=== PATIENT | female | born 1975 | race Caucasian/White ===

== ENCOUNTER 2017-05-19 19:05 | Emergency (ER) | payer BC ==
[2017-05-19 19:35] VITALS: BP 120/74
[2017-05-19] MEDS ORDERED: predniSONE TAB* 20 MG PO ONE (19:40)
[2017-05-19] MEDS ORDERED: Albuterol/Ipratropium NEB.SOL* Albuterol 2.5 MG/Ipratropium 0.5 MG 3 ML INH ONE (19:40)
[2017-05-19] MEDS ORDERED: Azithromycin TAB* 250 MG PO ONE (19:40)
--- NOTE | 2017-05-19 19:40 | UC ---
Respiratory Complaint HPI - HPI Summary HPI Summary: was a another urgent care 5 times and given albuterol and tessalon stated she just has "one hundred day cough". Comes in tonight chest feeling very tight and SOB - History of Current Complaint Chief Complaint: UCRespiratory Stated Complaint: SHORTNESS OF BREATH Time Seen by Provider: 05/19/17 19:29 Hx Obtained From: Patient Hx Last Menstrual Period: 05/01/17 ?: No Onset/Duration: Gradual Onset, Lasting Weeks Timing: Constant Severity Initially: Mild Severity Currently: Moderate Character: Cough: Nonproductive Aggravating Factors: Nothing Alleviating Factors: Bronchodilator Associated Signs And Symptoms: Positive: Dyspnea, Pleuritic Chest Pain, Wheezing - Allergies/Home Medications Allergies/Adverse Reactions: Allergies Allergy/AdvReac Type Severity Reaction Status Date / Time Penicillins Allergy Severe Anaphylatic Verified 05/19/17 19:35 Shock Home Medications: Home Medications Albuterol HFA INHALER* [Ventolin HFA Inhaler*] 2 puff INH Q4H PRN 05/19/17 [ History Confirmed 05/19/17] PMH/Surg Hx/FS Hx/Imm Hx Previously Healthy: Yes - Surgical History Surgical History: Yes Surgery Procedure, Year, and Place: , 2004 2006, [facility] [place]. Right Ovarian Cystectomy, 2012, [facility]. Tubal ligation - Family History Known Family History: Positive: None - Social History Occupation: Employed Full-time Lives: With Family Alcohol Use: Occasionally Substance Use Type: None Smoking Status (MU): Former Smoker Type: Cigarettes Length of Time of Smoking/Using Tobacco: quit "a long time ago", still has occasional social cigarette Review of Systems Constitutional: Negative Skin: Negative Eyes: Negative ENT: Negative Respiratory: Shortness Of Breath, Cough Cardiovascular: Negative Gastrointestinal: Negative Genitourinary: Negative Motor: Negative Neurovascular: Negative Musculoskeletal: Negative Neurological: Negative Psychological: Negative Is Patient Immunocompromised?: No All Other Systems Reviewed And Are Negative: Yes Physical Exam Triage Information Reviewed: Yes Appearance: Well-Appearing Vital Signs: Initial Vital Signs Temp 98.0 F 05/19/17 19:27 Pulse 93 05/19/17 19:27 Resp 20 05/19/17 19:27 BP 120/74 05/19/17 19:27 Pulse Ox 100 05/19/17 19:27 Vital Signs Reviewed: Yes Eye Exam: Normal Eyes: Positive: Conjunctiva Clear ENT Exam: Normal ENT: Positive: Normal ENT inspection, Hearing grossly normal, TMs normal. Negative: Nasal congestion, Nasal drainage, Trismus, Muffled/hoarse voice Dental Exam: Normal Neck exam: Normal Neck: Positive: Supple, Nontender Respiratory Exam: Normal, Other Respiratory: Positive: Respiratory distress - mild, Wheezing Cardiovascular Exam: Normal Cardiovascular: Positive: RRR, No Murmur, Pulses Normal, Brisk Capillary Refill Musculoskeletal Exam: Normal Musculoskeletal: Positive: Strength Intact, ROM Intact, No Edema Neurological Exam: Normal Neurological: Positive: Alert, Muscle Tone Normal Psychological Exam: Normal Skin Exam: Normal Diagnostic Evaluation - Laboratory O2 Sat by Pulse Oximetry: 100 Re-Evaluation - Re-Evaluation First Eval Change: Improved - increase airmovement no wheeze, cough decreased feels better Respiratory Course/Dx - Course Course Of Treatment: prednisone, robitussin and codiene, zithromax, albuterol with aerochamber, follow with pcp prn - Differential Dx/Diagnosis Provider Diagnoses: Bronchospasm, bronchitis Discharge - Discharge Plan Condition: Stable Disposition: HOME Prescriptions: Albuterol HFA INHALER* [Ventolin HFA Inhaler*] 2 puff INH Q4H PRN #1 mdi PRN Reason: cough Azithromycin TAB* [Zithromax TAB (Z-FOREIGN) 250 mg #6 tabs] 250 mg PO DAILY #4 tab guaiFENesin/CODIEN 100MG-10MG* [Robitussin AC 100Mg-10Mg*] 10 ml PO Q4H PRN # 120 ml MDD 40ml PRN Reason: cough predniSONE TAB* [Deltasone TAB*] 50 mg PO DAILY #4 tab Patient Education Materials: Acute Bronchitis (ED), Bronchospasm (ED), How to Use a Metered-Dose Inhaler and a Spacer (ED) Referrals: [facility] [Provider Group] - 1 Week
== END 2017-05-19 20:34 | disposition home or self-care (01) ==
LOC: UCCORT 19:05
DX: J40 Bronchitis, not specified as acute or chronic (principal); J98.01 Acute bronchospasm; Z87.891 Personal history of nicotine dependence; Z88.0 Allergy status to penicillin
CPT/HCPCS: 87798; 99213; A9270-GY; G0463; J7512

== ENCOUNTER 2018-11-28 11:55 | Emergency (ER) | payer SELFPAY ==
[2018-11-28 13:30] VITALS: BP 118/77
--- NOTE | 2018-11-28 14:29 | UC ---
Complaint Female HPI - HPI Summary HPI Summary: 42-year-old female presents with onset of increased mucus-like vaginal discharge approximately one week ago. 4 days later noted some burning with urination. 3 days ago she started noticing some tender, erythematous lesions in her perineum with in her pubic hair. States she was concerned she may have had a yeast infection and started 3 day course of Monistat 3 days ago with no improvement in symptoms. States she is in a monogamous sexual relationship with her spouse of 20 years. Denies fever, chills, abdominal pain, back or flank pain, nausea, vomiting, frequency, urgency, hematuria, dyspareunia, abnormal vaginal bleeding or labial lesions or ulcers. - History Of Current Complaint Chief Complaint: UCGeneralIllness Stated Complaint: personal Time Seen by Provider: 11/28/18 14:04 Hx Obtained From: Patient Hx Last Menstrual Period: 02 of november Pain Intensity: 4 - Allergies/Home Medications Allergies/Adverse Reactions: Allergies Allergy/AdvReac Type Severity Reaction Status Date / Time MS Penicillins [Penicillins] Allergy Severe Anaphylatic Verified 11/28/18 13:20 Shock Home Medications: Home Medications Magnesium Oxide [Magnesium] 400 mg PO DAILY 11/28/18 [History Confirmed 11/28/18 ] Miconazole VAG.SUPP* [Monistat7*] 1 unit 11/28/18 [History] PMH/Surg Hx/FS Hx/Imm Hx Respiratory History: Asthma - Surgical History Surgical History: Yes Surgery Procedure, Year, and Place: , 2004 2006, [facility] [place]var[place] Cystectomy, 2012, [facility]. Tubal ligation - Family History Known Family History: Positive: Non-Contributory - Social History Occupation: Employed Full-time Lives: With Family Alcohol Use: Rare Substance Use Type: None Smoking Status (MU): Former Smoker Type: Cigarettes Length of Time of Smoking/Using Tobacco: quit "a long time ago", still has occasional social cigarette Review of Systems All Other Systems Reviewed And Are Negative: Yes Constitutional: Negative: Fever, Chills Skin: Positive: Other - See HPI Respiratory: Positive: Negative Cardiovascular: Positive: Negative Gastrointestinal: Negative: Abdominal Pain, Vomiting, Diarrhea, Nausea Genitourinary: Positive: Dysuria, Vaginal/Penile Discharge. Negative: Hematuria , Frequency, Urgency, Vaginal/Penile Burning, Vaginal/Penile Itching, Ulceration /Lesion, Abnormal Bleeding Musculoskeletal: Positive: Negative Neurological: Positive: Negative Is Patient Immunocompromised?: No Physical Exam - Summary Physical Exam Summary: GENERAL APPEARANCE: Well developed, well nourished, alert and cooperative, and appears to be in no acute distress. CARDIAC: Normal S1 and S2. No S3, S4 or murmurs. Rhythm is regular. There is no peripheral edema, cyanosis or pallor. Extremities are warm and well perfused. Capillary refill is less than 2 seconds. Peripheral pulses intact. LUNGS: Clear to auscultation without rales, rhonchi, wheezing or diminished breath sounds. ABDOMEN: Positive bowel sounds. Soft, nondistended, nontender. No guarding or rebound. No masses or hepatosplenomegally. GENITOUINARY: Multiple pustular lesions at the base of the pubic hair follicles. No labial erythema, swelling, lesions, or discharge noted. Full pelvic exam was deferred. MUSKULOSKELETAL: ROM intact to all extremities. No joint erythema or tenderness. Normal muscular development. Normal gait. SKIN: Skin normal color, texture and turgor. Triage Information Reviewed: Yes Vital Signs: Initial Vital Signs Temp 98.6 F 11/28/18 13:23 Pulse 102 11/28/18 13:23 Resp 16 11/28/18 13:23 BP 118/77 11/28/18 13:23 Pulse Ox 99 11/28/18 13:23 Vital Signs Reviewed: Yes Complaint Female Dx - Course Course Of Treatment: 42-year-old female presents with onset of increased mucus-like vaginal discharge approximately one week ago. 4 days later noted some burning with urination. 3 days ago she started noticing some tender, erythematous lesions in her perineum with in her pubic hair. States she was concerned she may have had a yeast infection and started 3 day course of Monistat 3 days ago with no improvement in symptoms. States she is in a monogamous sexual relationship with her spouse of 20 years. Denies fever, chills, abdominal pain, back or flank pain, nausea, vomiting, frequency, urgency, hematuria, dyspareunia, abnormal vaginal bleeding or labial lesions or ulcers. Afebrile. Vital signs stable. Exam revealed multiple pustular lesions at the base of the pubic hair follicles and was otherwise unremarkable. Patient reports an anaphylactic reaction to penicillin and therefore I'm going to treat her for a folliculitis with a seven-day course of Bactrim DS twice a day as well as provide her with some mupirocin ointment to apply to the lesions. Patient stated that she was taking some Azo therefore urine testing was deferred. We discussed that the Bactrim would appropriately treat any urinary tract infection as well. Patient is to return here or follow up with her primary care provider in 3-5 days if symptoms are not improving. Anticipatory guidance and warning symptoms are reviewed with the patient. Verbalizes understanding of plan of care. - Differential Dx/Diagnosis Differential Diagnosis/HQI/PQRI: Pelvic Inflammatory Disease, Sexually Transmitted Disease, Urinary Tract Infection, Other - Vulvovaginosis Provider Diagnosis: Folliculitis Discharge - Sign-Out/Discharge Documenting (check all that apply): Patient Departure All imaging exams completed and their final reports reviewed: No Studies - Discharge Plan Condition: Stable Disposition: HOME Prescriptions: Mupirocin 2% OINT* [Bactroban 2 % Oint*] 1 applic TOPICAL BID #1 tube Sulfamethox/Trimethoprim DS* [Bactrim DS 800/160 TAB*] 1 tab PO BID #14 tab Patient Education Materials: Folliculitis (ED) Referrals: Evon Brito MD [Primary Care Provider] - 3 Days Additional Instructions: Your symptoms appear to be from a condition called folliculitis which is an infection of the hair follicles. Start Bactrim DS 1 tab twice a day for 7 days. Be sure to complete the entire course even if feeling better. Apply mupriocin ointment to affected area(s) twice a day. Keep the area clean. Normal showering using a mild soap and water is sufficient. Return here of follow up with your primary care provider in 3-5 days if symptoms do not improve. Seek immediate medical attention in the emergency room if you develop fever greater than 100.5 F, have severe abdominal pain, abnormal vaginal bleeding, or any worsening of symptoms. - Billing Disposition and Condition Condition: STABLE Disposition: Home
== END 2018-11-28 14:38 | disposition home or self-care (01) ==
LOC: UCEAST 11:55
DX: L73.9 Follicular disorder, unspecified (principal); N89.8 Other specified noninflammatory disorders of vagina; R30.0 Dysuria; J45.909 Unspecified asthma, uncomplicated; Z88.0 Allergy status to penicillin; Z87.891 Personal history of nicotine dependence
CPT/HCPCS: 99212; G0463